=== PATIENT | male | born 1950 | race Caucasian/White ===

== ENCOUNTER 2018-12-07 10:43 | Day surgery (SDC) | payer BC ==
[2018-12-05 15:21] LABS: Absolute Lymphocytes (CBC) 1.9 K/uL (0.7-4.9); Basophils % 0.6 % (0-1.3); Hematocrit 44.1 % (39.6-49.0); Lymphocytes % 26.3 % (15.3-44.8); RBC Red Blood Cell Count 4.59 M/uL (4.33-5.43)
[2018-12-05 15:23] LABS: Urine Appearance CLOUDY; Urine Bilirubin NEGATIVE (NEG); Urine Blood NEGATIVE (NEG); Urine Color YELLOW; Urine Glucose NEGATIVE (NEG); Urine Protein NEGATIVE (NEG); Urine Specific Gravity 1.015 (1.005-1.030); Urine Urobilinogen 0.2 mg/dL (0.2-1.0)
[2018-12-05 15:23] LABS: BUN Blood Urea Nitrogen 9 mg/dL (7-18); Bicarbonate 30 mmol/L (21-32); Glucose Level 85 mg/dL (74-106); Potassium 3.9 mmol/L (3.5-5.1); Sodium Level 141 mmol/L (136-145)
[2018-12-05 15:25] LABS: Protime INR 0.91
[2018-12-05 15:27] LABS: Urine Microscopic Reflex ORDER UMIC
[2018-12-05 15:42] LABS: Urine Amorphous Sediment 2+ /HPF (NONE SEEN); Urine Bacteria <20 /HPF (NONE SEEN); Urine RBC NONE SEEN /HPF (NONE SEEN)
[2018-12-05 15:43] LABS: Urine Culture Reflex Order NOT NEEDED
[2018-12-07] MEDS ORDERED: Ringers Lactate 1,000 ML IV ONE (11:03)
[2018-12-07] MEDS ORDERED: MIDAZOLAM HCL 2 MG/2 ML INJ ONE (11:51)
[2018-12-07] MEDS ORDERED: LIDOCAINE 1% MPF 30 ML VIAL ONE (11:59)
[2018-12-07] MEDS ORDERED: LIDOCAINE 1% MPF 5 ML VIAL ONE (12:07)
[2018-12-07] MEDS ORDERED: FENTANYL CITR 100 MCG/2 ML ONE ×2 (12:07→12:54)
[2018-12-07] MEDS ORDERED: PROPOFOL 200 MG/20 ML VIAL IV ONE (12:07)
[2018-12-07] MEDS: CEFAZOLIN/SWI 1gm 1 GM/10 ML SYR ONE ×2 (12:25→12:45)
[2018-12-07] MEDS ORDERED: KETOROLAC 30 MG/ML INJ ONE (13:09)
[2018-12-07] MEDS ORDERED: ONDANSETRON 4 MG/2 ML VIAL ONE (13:10)
--- NOTE | 2018-12-07 13:44 | EKG ---
Test Date: 2018-12-07 Test Time: 11:37:15 Logistics Administrator: [facility] MEASUREMENT RESULTS: Intervals: Rate: 107 VA: 176 QRSD: 74 QT: 344 QTc: 459 [place]: P: 53 VA: 176 QRS: 29 T: 54 INTERPRETIVE STATEMENTS: Sinus tachycardia Otherwise normal ECG No previous ECG available for comparison Electronically Signed On 12-07-18 13:43:40 CDT by Shaquille Aguilera
[2018-12-07] MEDS ORDERED: HYDROCODONE/APAP 10/325 TAB ONE (14:10)
== END 2018-12-07 14:50 | disposition home or self-care (01) ==
LOC: OR 10:43
PROVIDERS: ATTEND Podiatrist Foot Surgery
PROC: 0Y6M0Z5 Detachment at Right Foot, Complete 2nd Ray, Open Approach (ICD-10-PCS; principal; 2018-12-07 12:00)
DX: M86.8X7 Other osteomyelitis, ankle and foot (principal); Z86.19 Personal history of other infectious and parasitic diseases
CPT/HCPCS: 93005; 85025; 80048; 36415; 85610; 88305; 88311; 85730; 28810; J2704; J2250; J3010 ×2; J0690; J2405; 81003; 81015